=== PATIENT | female | born 1980 | race Caucasian/White ===

== ENCOUNTER 2016-07-26 19:01 | Emergency (ER) | payer OTHER, BC ==
--- NOTE | 2016-07-26 19:41 | PDOC ---
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 She has been working for the last hour trying to tolerate this ankle but is been bothersome to her and she was instructed to come for evaluation for this injury. Here in the emergency department she complains that she has some left lateral ankle pain she has injured this ankle in the past but they completely healed prior to this episode. She denies any other injury or concerning circumstances around her fall. Have you received a tetanus shot in the past 10 years?: Yes - Patient Allergies Allergies/Adverse Reactions: Allergies Allergy/AdvReac Type Severity Reaction Status Date / Time ciprofloxacin [From Cipro] Allergy rash Verified 07/26/16 19:24 ciprofloxacin HCl Allergy rash Verified 07/26/16 19:24 [From Cipro] cyproheptadine Allergy hives Verified 07/26/16 19:24 doxycycline Allergy vomiting Verified 07/26/16 19:24 Sulfa (Sulfonamide Allergy hives Verified 07/26/16 19:24 Antibiotics) - Patient Home Medications Home Medications: Home Medications Sertraline HCl [Zoloft] 1 tab PO DAILY #90 tab 03/30/16 Omeprazole Magnesium [Prilosec Otc] 20 mg PO DAILY 07/26/16 Past Medical History - heen HEENT History: Denies History Cardiovascular History: Denies History Respiratory History: Denies History Gastrointestinal History: Denies History Genitourinary History: Denies History Endocrine History: Denies History Musculoskeletal History: Other (please comment) Prosthesis or Implant: No Additional Musculoskeletal History: Left ankle sprain Neurological History: Denies History Blood Disorders: Denies History Psychiatric History: Depression History of Sexually Transmitted Diseases: No Female Reproductive History: Denies History Obstetrical History: Denies History Cancer History: Denies History In Past Year Been Physically Harmed or Verbally Threatened: No History of MDRO: No History of Other Communicable Diseases: No Tobacco Use: Former Smoker Alcohol Use: Occasionally Substance Use Type: None Previous Surgical History: Yes Type / Date of Surgery: CHOLECYSTECTOMY. TONSILS. UNILATERAL BREAST REDUCTION , LEFT BREAST Anesthesia Reactions: No Significant Family History: No pertinent family hx Past Medical History Reviewed: Reviewed - No Changes ROS - Limitations ROS Limitations: No Limitations Constitution: REPORTS: Denies Symptoms Cardiovascular: REPORTS: Denies Cardiac Symptoms Respiratory: REPORTS: Denies Resp Symptoms Foot / Ankle Exam - General Appearance General Appearance: POSITIVE: Alert, Cooperative, No Acute Distress - Extremities Foot: POSITIVE: Normal Inspection Ankle: POSITIVE: Other (she has some tenderness in the lateral aspect of that left ankle around the malleolus down into the upper portion of the foot. There is no obvious substantial bruising or swelling at this point.) Gait: POSITIVE: Limited by Pain Neuro: POSITIVE: Sensation Normal Vascular: POSITIVE: No Vascular Compromise Tendons: POSITIVE: Tendon Function Normal Foot / Ankle Progress - Results Reviewed by me Radiology Findings: Ankle films are benign - Patient's Progress MDM / ED Course: X-rays do not show any acute fracture. This is likely a ligamentous injury and will simply take some rest and time to heal. I have told her to let her symptoms be her guide and that if she feels she cannot work that I be glad to give her a note to that effect. If she feels she can get around either in a compression wrap or boot or whatever would take to help her out on glad to do that as well. She can ice this off and on for the next few days keep it elevated is much as possible use compression and rest. If this is not improving readily then further evaluation with orthopedics may be in order. Patient Care Time - Estimated PCT Patient Care Time (In Minutes): 25 Vital Signs - Recent Vital Signs Vital Signs: Vital Signs (Last 8 hours) Temp Pulse Resp BP Pulse Ox 07/26/16 19:05 97.6 F 92 20 126/90 95 - VS Reviewed Vital Signs Reviewed: Yes Discharge Clinical Impression: Ankle pain Ankle strain Qualifiers: Encounter type: initial encounter Laterality: left Qualifier Code: (S96.912A) Strain of unspecified muscle and tendon at ankle and foot level, left foot, initial encounter Discharge Disposition: Discharged to Home Condition: Good Patient Instructions Given at Discharge: Ankle Sprain (ED) Additional Instructions: Rest ice elevation and compression. If not improving readily over the next few days be seen by orthopedics to reevaluate her ankle Return to use of your ankle as tolerated over the next few days If things are worsening at all or he other concerns do not hesitate to return to the emergency department. Follow Up With: REBECA JOHN [Primary Care Provider] -
[2016-07-26 19:47] VITALS: RESP 20; TEMP 97.6
--- NOTE | 2016-07-26 20:46 | DI ---
XR ANKLE 2VW,07/26/2016 7:24 PM: Clinical History: Fall with ankle pain. Previous Exam: None at this facility. Findings: 2 views of the left ankle are obtained, and demonstrate anatomic alignment without fractures. Surroun ding soft tissues are unremarkable. Impression: Normal left ankle.
== END 2016-07-26 20:00 | disposition home or self-care (01) ==
LOC: ER 19:01
DX: S96.912A Strain of unspecified muscle and tendon at ankle and foot level, left foot, initial encounter (principal); W18.39XA Other fall on same level, initial encounter; Y92.238 Other place in hospital as the place of occurrence of the external cause; Y99.0 Civilian activity done for income or pay
CPT/HCPCS: 73600; 99282